=== PATIENT | male | born 1945 | race Caucasian/White ===

== ENCOUNTER → 2016-09-09 | Outpatient (CLI) | payer MEDICARE | LOC: M SMT 07:53 | PROVIDERS: ATTEND Urology | DX: R97.20 Elevated prostate specific antigen [PSA] (principal) ==

== ENCOUNTER → 2016-10-14 | Outpatient (REF) | payer MEDICARE | LOC: M LAB REF 12:47 | PROVIDERS: ATTEND Emergency Medicine | DX: N45.1 Epididymitis (principal) ==

== ENCOUNTER → 2016-12-03 | Outpatient (CLI) | payer MEDICARE ==
[2016-12-03 18:37] LABS: BASO % 0.3 % (0.0-1.0); EOS # 0.2 K/mm3 (0.0-0.50); EOS % 2.9 % (0.0-3.0); LARGE UNSTAINED CELL # 0.1 K/mm3 (0.0-0.4); LARGE UNSTAINED CELL % 2.3 % (0.0-4.0); LYMPH # 1.5 K/mm3 (1.5-4.5); MEAN CORPUSCULAR HEMOGLOBIN 30.8 pg (27.0-33.0); MEAN CORPUSCULAR HGB CONC 34.8 g/dl (32.0-36.5); MEAN CORPUSCULAR VOLUME 88.6 fl (80.0-96.0); MONO # 0.4 K/mm3 (0.0-0.8); MONO % 6.1 % (0.0-5.0); NEUTROPHILS # 3.5 K/mm3 (1.8-7.7); NEUTROPHILS % 61.4 % (36.0-66.0); PLATELET COUNT, AUTOMATED 253 k/mm3 (150-450); RED CELL DISTRIBUTION WIDTH 13.2 % (11.5-14.5); WHITE BLOOD COUNT 5.7 K/mm3 (4.0-10.0)
[2016-12-03 18:49] LABS: ALBUMIN 3.6 GM/DL (3.2-5.2); ALKALINE PHOSPHATASE 100 U/L (45-117); ALT/SGPT 39 U/L (12-78); ANION GAP 6 MEQ/L (8-16); AST/SGOT 28 U/L (15-37); BILIRUBIN,TOTAL 1.3 MG/DL (0.2-1.0); BLOOD UREA NITROGEN 23 MG/DL (7-18); CALCIUM LEVEL 8.8 MG/DL (8.8-10.2); CARBON DIOXIDE LEVEL 29 MEQ/L (21-32); CHLORIDE LEVEL 105 MEQ/L (98-107); CHOLESTEROL LEVEL 170 MG/DL (<200); CREATININE FOR GFR 1.07 MG/DL (0.70-1.30); GLOMERULAR FILTRATION RATE > 60.0 (>42); GLUCOSE, FASTING 127 MG/DL (83-110); POTASSIUM SERUM 4.3 MEQ/L (3.5-5.1); SODIUM LEVEL 140 MEQ/L (136-145); TOTAL PROTEIN 6.6 GM/DL (6.4-8.2); TRIGLYCERIDES LEVEL 82 MG/DL (<150)
== END ==
LOC: M SMT 10:37
PROVIDERS: ATTEND Emergency Medicine
DX: I10 Essential (primary) hypertension (principal); E78.2 Mixed hyperlipidemia; R73.01 Impaired fasting glucose

== ENCOUNTER → 2017-01-19 | Outpatient (CLI) | payer MEDICARE ==
[~2017-01-19] VITALS: Ht 177.8 cm; Wt 87.1 kg
[~2017-01-19] MED LIST: ASPI325T24 PO; ATOR80TA59 PO; HYDR12CA PO; KEFL500C17 PO; LOSA50TA20 PO; NS 1,000 ML IV ONE; OMEP20CA3 PO; PROPOFOL 200 MG/20 ML VIAL As Ordered ONE; VITA100067 PO; VITATAB11 PO
--- NOTE | 2017-01-19 11:36 | ROOR ---
Patient Name: Rafy Quintanilla Procedure Date: 01/19/2017 11:11 AM Date of : 1945 Age: 71 Room: [facility] Gender: Male Note Status: Finalized Procedure: Total Colonoscopy to cecum + Bx. Indications: Screening for colorectal malignant neoplasm Providers: Tanmay Matute MD Referring MD: ARVIN PONCE MD Requesting Provider: Medicines: Monitored Anesthesia Care Complications: No immediate complications. Procedure: Pre-Anesthesia Assessment: - The heart rate, respiratory rate, oxygen saturations, blood pressure, adequacy of pulmonary ventilation, and response to care were monitored throughout the procedure. The Colonoscope was introduced through the anus and advanced to the cecum, identified by appendiceal orifice and ileocecal valve. The colonoscopy was performed without difficulty. The patient tolerated the procedure well. The quality of the bowel preparation was excellent. Findings: The perianal and digital rectal examinations were normal. Non-bleeding internal hemorrhoids were found during retroflexion. The hemorrhoids were small and Grade I (internal hemorrhoids that do not prolapse). Multiple small and large-mouthed diverticula were found in the recto-sigmoid colon, sigmoid colon and descending colon. A localized area of mildly congested, erythematous and inflamed mucosa was found in the rectum. Biopsies were taken with a cold forceps for histology. The exam was otherwise without abnormality. Impression: - Non-bleeding internal hemorrhoids. - Diverticulosis in the recto-sigmoid colon, in the sigmoid colon and in the descending colon. - Congested, erythematous and inflamed mucosa in the rectum. Biopsied. - The examination was otherwise normal. - The exam was otherwise normal to the cecum. Recommendation: - Patient has a contact number available for emergencies. The signs and symptoms of potential delayed complications were discussed with the patient. Return to normal activities tomorrow. Written discharge instructions were provided to the patient. - High fiber diet. - Discharge patient to home. - Continue present medications. - Await pathology results. - Telephone GI clinic for pathology results in 1 week. - Repeat colonoscopy for symptoms only. - Return to referring physician. - Check Portal Online for Path Results.([email or web address] - The findings and recommendations were discussed with the patient's family. Tanmay Matute MD Tanmay Matute MD 01/19/2017 11:35:22 AM This report has been signed electronically. Number of Addenda: 0 Note Initiated On: 01/19/2017 11:11 AM Estimated Blood Loss: Estimated blood loss: none.
[2017-01-19 11:45] VITALS: BP 142/84
== END | disposition home or self-care (01) ==
LOC: M OPP 10:22
PROVIDERS: ATTEND Internal Medicine Gastroenterology
DX: Z12.11 Encounter for screening for malignant neoplasm of colon (principal); K64.0 First degree hemorrhoids; K57.30 Diverticulosis of large intestine without perforation or abscess without bleeding; K62.89 Other specified diseases of anus and rectum; I10 Essential (primary) hypertension; E78.00 Pure hypercholesterolemia, unspecified; Z87.891 Personal history of nicotine dependence; Z79.899 Other long term (current) drug therapy; Z79.82 Long term (current) use of aspirin; Z88.2 Allergy status to sulfonamides

== ENCOUNTER 2017-01-20 08:13 | Emergency (ER) | payer OTHER, MEDICARE ==
[~2017-01-20] VITALS: Ht 177.8 cm; Wt 85.5 kg
[~2017-01-20 08:13] MED LIST changes: -KEFL500C17 PO; -NS 1,000 ML IV ONE; -PROPOFOL 200 MG/20 ML VIAL As Ordered ONE
[2017-01-20 08:20] VITALS: BP 166/83
[2017-01-20] MEDS ORDERED: KEFL500C17 PO (09:14)
[2017-01-20] MEDS ORDERED: ADACEL/BOOSTRIX VACCINE (DIPHTH/PERTUSS/ACELL/TETANUS)0.5ML SYR (90715) IM ONE (09:15)
== END 2017-01-20 09:20 | disposition home or self-care (01) ==
LOC: M ED 08:13
DX: S61.216A Laceration without foreign body of right little finger without damage to nail, initial encounter (principal); W26.9XXA Contact with unspecified sharp object(s), initial encounter; Y92.89 Other specified places as the place of occurrence of the external cause; Y93.89 Activity, other specified; Y99.0 Civilian activity done for income or pay

== ENCOUNTER → 2017-04-09 | Outpatient (CLI) | payer MEDICARE ==
[~2017-04-09] MED LIST changes: +KEFL500C17 PO
== END ==
LOC: M SMT 11:59
PROVIDERS: ATTEND Urology
DX: R97.20 Elevated prostate specific antigen [PSA] (principal)

== ENCOUNTER → 2017-05-01 | Outpatient (CLI) | payer MEDICARE ==
[2017-05-01 18:18] LABS: BLOOD UREA NITROGEN 21 MG/DL (7-18); CREATININE FOR GFR 0.92 MG/DL (0.70-1.30); GLOMERULAR FILTRATION RATE > 60.0 (>42)
== END ==
LOC: M SMT 15:02
PROVIDERS: ATTEND Urology
DX: R97.20 Elevated prostate specific antigen [PSA] (principal)

== ENCOUNTER → 2017-07-09 | Outpatient (CLI) | payer MEDICARE ==
[2017-07-09 18:18] LABS: ESTIMATED AVERAGE GLUCOSE 137 MG/DL (60-110)
[2017-07-09 18:21] LABS: ALBUMIN 3.8 GM/DL (3.2-5.2); ALBUMIN/GLOBULIN RATIO 1.19 (1.00-1.93); ALKALINE PHOSPHATASE 95 U/L (45-117); ALT/SGPT 36 U/L (12-78); ANION GAP 7 MEQ/L (8-16); AST/SGOT 30 U/L (7-37); BILIRUBIN,TOTAL 1.6 MG/DL (0.2-1.0); BLOOD UREA NITROGEN 19 MG/DL (7-18); CALCIUM LEVEL 8.3 MG/DL (8.8-10.2); CARBON DIOXIDE LEVEL 29 MEQ/L (21-32); CHLORIDE LEVEL 105 MEQ/L (98-107); CHOLESTEROL LEVEL 153 MG/DL (<200); GLOMERULAR FILTRATION RATE > 60.0 (>42); GLUCOSE, FASTING 134 MG/DL (83-110); POTASSIUM SERUM 4.3 MEQ/L (3.5-5.1); SODIUM LEVEL 141 MEQ/L (136-145); TRIGLYCERIDES LEVEL 74 MG/DL (<150)
== END ==
LOC: M SMT 11:15
DX: E78.2 Mixed hyperlipidemia (principal); I10 Essential (primary) hypertension; R73.01 Impaired fasting glucose
CPT/HCPCS: 80053

== ENCOUNTER → 2017-12-08 | Outpatient (CLI) | payer MEDICARE ==
[2017-12-10 00:06] LABS: PSA % FREE 17.4 % (.); PSA FREE 0.75 ng/mL; PSA TOTAL 4.3 ng/mL (0.0-4.0)
== END ==
LOC: M SMT 08:03
DX: R97.20 Elevated prostate specific antigen [PSA] (principal)
CPT/HCPCS: 84154

== ENCOUNTER → 2018-02-02 | Outpatient (CLI) | payer MEDICARE ==
[2018-02-02 14:00] LABS: ALBUMIN 3.6 GM/DL (3.2-5.2); ALBUMIN/GLOBULIN RATIO 1.09 (1.00-1.93); ALKALINE PHOSPHATASE 96 U/L (45-117); ALT/SGPT 49 U/L (12-78); ANION GAP 6 MEQ/L (8-16); AST/SGOT 31 U/L (7-37); BILIRUBIN,TOTAL 0.9 MG/DL (0.2-1.0); BLOOD UREA NITROGEN 22 MG/DL (7-18); CALCIUM LEVEL 8.6 MG/DL (8.8-10.2); CARBON DIOXIDE LEVEL 28 MEQ/L (21-32); CHLORIDE LEVEL 107 MEQ/L (98-107); CHOLESTEROL LEVEL 173 MG/DL (<200); CHOLESTEROL RISK RATIO 3.326 (<5); CREATININE FOR GFR 1.08 MG/DL (0.70-1.30); GLOMERULAR FILTRATION RATE > 60.0 (>42); GLUCOSE, FASTING 141 MG/DL (70-100); HDL CHOLESTEROL 52 MG/DL (>40); LDL CHOLESTEROL 103.6 MG/DL (<100); NON-HDL-C 121 MG/DL; POTASSIUM SERUM 4.5 MEQ/L (3.5-5.1); SODIUM LEVEL 141 MEQ/L (136-145); TOTAL PROTEIN 6.9 GM/DL (6.4-8.2); TRIGLYCERIDES LEVEL 87 MG/DL (<150)
[2018-02-02 14:32] LABS: ESTIMATED AVERAGE GLUCOSE 148 MG/DL (60-110); HEMOGLOBIN A1c 6.8 %
== END ==
LOC: M SMT 08:26
DX: I10 Essential (primary) hypertension (principal); E78.2 Mixed hyperlipidemia; R73.01 Impaired fasting glucose
CPT/HCPCS: 80053

== ENCOUNTER → 2019-01-31 | Outpatient (CLI) | payer MEDICARE ==
[~2019-01-31] MED LIST changes: +ASPI-255 PO; -ASPI325T24 PO; -LOSA50TA20 PO; +LOSA50TA88 PO; -OMEP20CA3 PO; +OMEP20CA4 PO
[2019-01-31 13:21] LABS: HEMATOCRIT 45.4 % (42.0-52.0); HEMOGLOBIN 15.6 g/dl (13.5-17.5); MEAN CORPUSCULAR HEMOGLOBIN 31.7 pg (27.0-33.0); MEAN CORPUSCULAR HGB CONC 34.4 g/dl (32.0-36.5); MEAN CORPUSCULAR VOLUME 92.3 fl (80.0-96.0); PLATELET COUNT, AUTOMATED 200 10^3/uL (150-450); RED BLOOD COUNT 4.92 10^6/uL (4.30-6.10); WHITE BLOOD COUNT 7.5 10^3/uL (4.0-10.0)
[2019-01-31 13:37] LABS: ALBUMIN 3.6 GM/DL (3.2-5.2); ALT/SGPT 36 U/L (12-78); BILIRUBIN,TOTAL 0.8 MG/DL (0.2-1.0); BLOOD UREA NITROGEN 24 MG/DL (7-18); CALCIUM LEVEL 9.2 MG/DL (8.8-10.2); CARBON DIOXIDE LEVEL 29 MEQ/L (21-32); CHLORIDE LEVEL 107 MEQ/L (98-107); CHOLESTEROL LEVEL 160 MG/DL (<200); CHOLESTEROL RISK RATIO 3.636 (<5); GLOMERULAR FILTRATION RATE > 60.0 (>42); GLUCOSE, FASTING 132 MG/DL (70-100); HDL CHOLESTEROL 44 MG/DL (>40); LDL CHOLESTEROL 103 MG/DL (<100); NON-HDL-C 116 MG/DL; POTASSIUM SERUM 4.7 MEQ/L (3.5-5.1); SODIUM LEVEL 141 MEQ/L (136-145); TOTAL PROTEIN 6.9 GM/DL (6.4-8.2); TRIGLYCERIDES LEVEL 67 MG/DL (<150)
[2019-01-31 14:09] LABS: HEMOGLOBIN A1c 6.8 %
[2019-02-01 14:41] LABS: PSA % FREE 19.2 % (.); PSA FREE 0.96 ng/mL
== END ==
LOC: M SMT 10:15
PROVIDERS: ATTEND Urology
DX: E78.2 Mixed hyperlipidemia (principal); R53.83 Other fatigue; R97.20 Elevated prostate specific antigen [PSA]

== ENCOUNTER → 2019-08-02 | Outpatient (CLI) | payer MEDICARE ==
[~2019-08-02] MED LIST changes: +OMEP1CAP73 PO; -OMEP20CA4 PO
[2019-08-02 13:56] LABS: ALBUMIN 3.9 GM/DL (3.2-5.2); ALT/SGPT 38 U/L (12-78); BILIRUBIN,TOTAL 2.2 MG/DL (0.2-1.0); BLOOD UREA NITROGEN 25 MG/DL (7-18); CALCIUM LEVEL 9.4 MG/DL (8.8-10.2); CARBON DIOXIDE LEVEL 29 MEQ/L (21-32); CHLORIDE LEVEL 105 MEQ/L (98-107); GLOMERULAR FILTRATION RATE > 60.0 (>42); GLUCOSE, FASTING 139 MG/DL (70-100); POTASSIUM SERUM 4.4 MEQ/L (3.5-5.1); SODIUM LEVEL 140 MEQ/L (136-145)
[2019-08-02 14:52] LABS: HEMOGLOBIN A1c 7.1 %
== END ==
LOC: M PLALAB 10:20
PROVIDERS: ATTEND Physician Assistant
DX: R73.01 Impaired fasting glucose (principal)

== ENCOUNTER → 2019-10-05 | Outpatient (CLI) | payer MEDICARE ==
[~2019-10-05] MED LIST changes: +ISOVUE-370 76% 100ML VIAL (Q9967) As Ordered ONE
--- NOTE | 2019-10-05 11:31 | REP ---
Clinical: Aortic aneurysm. Technique: Axial contrast enhanced angiographic images from the thoracic inlet to the upper abdomen with multiplanar re-formations and and volume rendered 3-D aortic angiogram using 100 ml Isovue 370 intravenous contrast material. Findings: Ascending thoracic aorta measures 3.3 cm maximal diameter. There is a small focus of partially calcified atheromatous plaquing along the mid to distal aortic arch and the descending thoracic aorta measures up to approximately 2.6 cm maximal diameter before extending below the diaphragmatic hiatus. Major branch vessels of the thoracic aorta are normal in appearance. The pulmonary arteries appear normal. The heart demonstrates atherosclerotic changes to the coronary arteries without cardiomegaly or pericardial effusion. There is no evidence for adenopathy. Further evaluation of the mediastinum demonstrates large paraesophageal gastric hiatal hernia. The bilateral lung murphy are relatively clear. Calcified granuloma noted. No significant nodule, consolidation or effusion. Surrounding musculoskeletal structures are intact. Impression: 1. No evidence for thoracic aortic aneurysm or dissection. Atherosclerotic changes noted primarily through the aortic arch and coronary arteries. 2. Large paraesophageal gastric hiatal hernia. Electronically Signed by Nate Lee MD 10/05/2019 11:22 A
--- NOTE | 2019-10-05 11:37 | REP ---
Clinical: Aortic aneurysm. Technique: Axial contrast enhanced angiographic images from the the lung bases to the pubic symphysis with multiplanar re-formations and and volume rendered 3-D aortic angiogram using 100 ml Isovue 370 intravenous contrast material. Comparison: 06/19/2015. Findings: The abdominal aorta and branch vessels demonstrate mild/early moderate atheromatous plaquing without aortic aneurysm or dissection and without obvious branch vessel stenosis or occlusion. There is satisfactory enhancement of the celiac axis, superior mesenteric artery, solitary right and dual left renal arteries and inferior mesenteric artery. Bifurcation and arterial structures through the pelvis to the level of the femoral arteries demonstrate satisfactory symmetric enhancement. Large paraesophageal gastric hiatal hernia noted. Liver, spleen, pancreas, gallbladder, bilateral adrenal glands and kidneys are relatively normal. 3 mm nonobstructing left renal calculus identified without perinephric stranding or hydronephrosis. The enteric system is without obstruction or acute inflammatory process. Evaluation of the pelvis demonstrates prostatomegaly and posterior bladder diverticulum measuring up to 1.7 cm on the right and 10 mm on the left. No pelvic fluid or ascites. No free air. No adenopathy. Impression: 1. Mild/moderate atheromatous plaquing of the abdominal aorta and branch vessels. No evidence for abdominal aortic aneurysm or dissection. No significant elements of occlusion or stenosis appreciated. 2. Large paraesophageal gastric hiatal hernia. 3. 3 mm nonobstructing left renal calculus. 4. Prostatomegaly and small bladder diverticulum which may be secondary to chronic outlet obstruction. Electronically Signed by Nate Lee MD 10/05/2019 11:28 A
== END ==
LOC: M RAD 10:13
PROVIDERS: ATTEND Surgery Vascular Surgery
DX: K44.9 Diaphragmatic hernia without obstruction or gangrene (principal); I70.0 Atherosclerosis of aorta; N20.0 Calculus of kidney
CPT/HCPCS: 71275; 74174; Q9967

== ENCOUNTER → 2019-12-08 | Outpatient (CLI) | payer MEDICARE ==
[~2019-12-08] MED LIST changes: -ISOVUE-370 76% 100ML VIAL (Q9967) As Ordered ONE
[2019-12-08 11:43] LABS: CHOLESTEROL RISK RATIO 4.093 (<5)
== END ==
LOC: M PLALAB 09:30
PROVIDERS: ATTEND Internal Medicine Cardiovascular Disease
DX: E78.00 Pure hypercholesterolemia, unspecified (principal)

== ENCOUNTER → 2020-02-07 | Outpatient (REF) | payer MEDICARE ==
[2020-03-12 13:45] LABS: ALBUMIN 3.8 GM/DL (3.2-5.2); ALT/SGPT 36 U/L (12-78); BILIRUBIN,TOTAL 1.1 MG/DL (0.2-1.0); BLOOD UREA NITROGEN 26 MG/DL (7-18); CALCIUM LEVEL 8.8 MG/DL (8.8-10.2); CARBON DIOXIDE LEVEL 31 MEQ/L (21-32); CHLORIDE LEVEL 106 MEQ/L (98-107); CHOLESTEROL LEVEL 68 MG/DL (<200); CHOLESTEROL RISK RATIO 1.478 (<5); CREATININE FOR GFR 1.08 MG/DL (0.70-1.30); GLOMERULAR FILTRATION RATE > 60.0 (>42); GLUCOSE, FASTING 148 MG/DL (70-100); HDL CHOLESTEROL 46 MG/DL (>40); HEMOGLOBIN A1c 6.7 %; LDL CHOLESTEROL 6 MG/DL (<100); NON-HDL-C 22 MG/DL; POTASSIUM SERUM 4.9 MEQ/L (3.5-5.1); SODIUM LEVEL 142 MEQ/L (136-145); TOTAL PROTEIN 6.9 GM/DL (6.4-8.2); TRIGLYCERIDES LEVEL 82 MG/DL (<150)
[2020-03-12 13:46] LABS: MALB URINE SIEMENS 9.6 MG/L
== END ==
LOC: M LABSMT 14:03
PROVIDERS: ATTEND Physician Assistant
DX: E78.2 Mixed hyperlipidemia (principal); I10 Essential (primary) hypertension; E11.9 Type 2 diabetes mellitus without complications; R97.20 Elevated prostate specific antigen [PSA]

== ENCOUNTER → 2020-02-07 | Outpatient (REF) | payer MEDICARE ==
[2020-03-15 06:37] LABS: PSA TOTAL See Separate Report
== END ==
LOC: M LABSMT 17:19
PROVIDERS: ATTEND Chiropractor Rehabilitation
DX: R97.20 Elevated prostate specific antigen [PSA] (principal)

== ENCOUNTER → 2020-06-27 | Outpatient (CLI) | payer MEDICARE ==
[2020-06-27 10:40] LABS: CHOLESTEROL RISK RATIO 1.34 (<5)
== END ==
LOC: M PLALAB 09:06
PROVIDERS: ATTEND Internal Medicine Cardiovascular Disease
DX: I25.118 Atherosclerotic heart disease of native coronary artery with other forms of angina pectoris (principal); E78.00 Pure hypercholesterolemia, unspecified

== ENCOUNTER → 2020-09-11 | Outpatient (CLI) | payer MEDICARE ==
[2020-09-11 11:05] LABS: CHOLESTEROL RISK RATIO 1.452 (<5)
== END ==
LOC: M PLALAB 08:56
PROVIDERS: ATTEND Physician Assistant Medical
DX: E78.00 Pure hypercholesterolemia, unspecified (principal)

== ENCOUNTER → 2020-11-20 | Outpatient (CLI) | payer MEDICARE ==
[2020-11-20 10:52] LABS: CHOLESTEROL RISK RATIO 1.509 (<5)
== END ==
LOC: M PLALAB 08:27
PROVIDERS: ATTEND Internal Medicine Cardiovascular Disease
DX: E78.00 Pure hypercholesterolemia, unspecified (principal); I25.10 Atherosclerotic heart disease of native coronary artery without angina pectoris

== ENCOUNTER → 2021-01-21 | Outpatient (CLI) | payer MEDICARE ==
[2021-01-22 23:07] LABS: PSA % FREE 16.4 % (.); PSA FREE 0.9 ng/mL; PSA TOTAL 5.5 ng/mL (0.0-4.0)
== END ==
LOC: M PLALAB 08:24
PROVIDERS: ATTEND Nurse Practitioner Family
DX: R97.20 Elevated prostate specific antigen [PSA] (principal)

== ENCOUNTER → 2021-01-21 | Outpatient (CLI) | payer MEDICARE ==
[2021-01-21 11:39] LABS: ALBUMIN 3.7 GM/DL (3.2-5.2); ALT/SGPT 41 U/L (12-78); BLOOD UREA NITROGEN 24 MG/DL (7-18); CALCIUM LEVEL 9.4 MG/DL (8.8-10.2); CARBON DIOXIDE LEVEL 29 MEQ/L (21-32); CHLORIDE LEVEL 105 MEQ/L (98-107); CREATININE FOR GFR 0.94 MG/DL (0.70-1.30); GLOMERULAR FILTRATION RATE > 60.0 (>42); GLUCOSE, FASTING 206 MG/DL (70-100); POTASSIUM SERUM 4.6 MEQ/L (3.5-5.1); SODIUM LEVEL 139 MEQ/L (136-145)
[2021-01-21 11:48] LABS: MALB URINE SIEMENS 20.7 MG/L
== END ==
LOC: M PLALAB 08:26
PROVIDERS: ATTEND Nurse Practitioner Family
DX: E11.9 Type 2 diabetes mellitus without complications (principal); I10 Essential (primary) hypertension

== ENCOUNTER → 2021-01-21 | Outpatient (CLI) | payer MEDICARE ==
[2021-01-21 11:43] LABS: CHOLESTEROL RISK RATIO 2.826 (<5)
== END ==
LOC: M PLALAB 08:28
PROVIDERS: ATTEND Internal Medicine Cardiovascular Disease
DX: I25.118 Atherosclerotic heart disease of native coronary artery with other forms of angina pectoris (principal); E78.00 Pure hypercholesterolemia, unspecified

== ENCOUNTER 2021-01-25 12:32 | Emergency (ER) | payer MEDICARE ==
[~2021-01-25] VITALS: Ht 177.8 cm; Wt 85.5 kg
[2021-01-25] MEDS ORDERED: NITR0.4S14 SL (16:28)
[2021-01-25] MEDS ORDERED: OMEP-221 PO (16:28)
[2021-01-25] MEDS ORDERED: VITMTA PO (16:28)
[2021-01-25] MEDS ORDERED: REPA140I2 SUBQ (16:28)
[2021-01-25] MEDS ORDERED: ACETAMINOPHEN 500 MG TAB PO ONE (17:10)
[2021-01-25] MEDS ORDERED: ONDANSETRON 4MG/2ML VIAL IV ONE (17:10)
[2021-01-25] MEDS ORDERED: LIDOCAINE 5% (LIDODERM) PATCH TD ONE (17:10)
[2021-01-25] MEDS ORDERED: MORPHINE 4 MG/ML 1ML VIAL/SYRINGE (J2270) IV ONE (17:10)
--- NOTE | 2021-01-25 17:52 | REPVR ---
PROCEDURE INFORMATION: Exam: CT Lumbar Spine Without Contrast Exam date and time: 01/25/2021 5:15 PM Age: 75 years old Clinical indication: Other: Low back pain radiating to lle TECHNIQUE: Imaging protocol: Computed tomography images of the lumbar spine without contrast. Radiation optimization: All CT scans at this facility use at least one of these dose optimization techniques: automated exposure control; mA and/or kV adjustment per patient size (includes targeted exams where dose is matched to clinical indication); or iterative reconstruction. COMPARISON: CT ANGIO ABD/PEL 10/05/2019 10:50 AM FINDINGS: Vertebrae: Slight degenerative retrolisthesis of L4 on L5 and L5 on S1. Slight lower lumbar levoconvex scoliosis. No acute fracture seen. Disc height loss and spondylosis is [id number] at L5-S1. Mild disc height loss elsewhere. Prominent multilevel prevertebral spondylosis. L1-L2: No significant disc protrusion. No severe spinal canal stenosis. No significant neural foraminal narrowing. L2-L3: No significant disc protrusion. No severe spinal canal stenosis. No significant neural foraminal narrowing. L3-L4: Mild disc osteophyte complex and lrud-ts-hqlxdshe facet arthropathy. The central spinal canal remains patent. Mild left neural foraminal stenosis. No significant right neural foraminal narrowing. L4-L5: Mild diffuse disc bulge and fygo-rk-sooucolb facet arthropathy. The central spinal canal remains patent. No significant foraminal stenoses. L5-S1: Mild disc osteophyte complex and zlma-nm-kbfgvmui facet arthropathy. The central spinal canal remains patent. Disc osteophyte complex may contact the S1 nerve roots. Eiye-qb-tkopezke right and mild left neural foraminal stenoses, the exiting L5 nerve roots may contact far lateral disc osteophyte. Mediastinum: There is a large hiatal hernia. Kidneys and ureters: The left kidney demonstrates a nonobstructing calculus. Stomach and bowel: There is colonic diverticulosis. Vasculature: The aorta demonstrates atherosclerosis. Soft tissues: Unremarkable. IMPRESSION: 1. No acute findings identified. 2. Degenerative changes, as above. No high-grade central spinal canal stenosis. Neural foraminal stenoses at L5-S1. Disc osteophyte complex at L5-S1 may contact the S1 nerve roots. Electronically signed by: Nona Salinas On 01/25/2021 17:51:54 PM
[2021-01-25 18:21] VITALS: BP 131/65
[2021-01-25] MEDS ORDERED: ACET1TAB16 PO (19:24)
[2021-01-25] MEDS ORDERED: LIDO5DIS41 TOP (19:24)
[2021-01-25] MEDS ORDERED: **NOTE PATIENT COMMENT** MISC XX SCH (21:00)
== END 2021-01-25 19:44 | disposition home or self-care (01) ==
LOC: M ED 12:32
DX: S39.012A Strain of muscle, fascia and tendon of lower back, initial encounter (principal); X58.XXXA Exposure to other specified factors, initial encounter; Y92.89 Other specified places as the place of occurrence of the external cause; M51.27 Other intervertebral disc displacement, lumbosacral region; M51.37 Other intervertebral disc degeneration, lumbosacral region; M54.42 Lumbago with sciatica, left side; I10 Essential (primary) hypertension; E78.5 Hyperlipidemia, unspecified; K21.9 Gastro-esophageal reflux disease without esophagitis; I25.10 Atherosclerotic heart disease of native coronary artery without angina pectoris; N40.0 Benign prostatic hyperplasia without lower urinary tract symptoms; Z79.899 Other long term (current) drug therapy; Z79.82 Long term (current) use of aspirin; Z88.1 Allergy status to other antibiotic agents; Z88.2 Allergy status to sulfonamides; Z87.891 Personal history of nicotine dependence
CPT/HCPCS: 72131; 96374; 96375; 99284; J2270; J2405

== ENCOUNTER → 2021-05-02 | Outpatient (CLI) | payer MEDICARE ==
[~2021-05-02] MED LIST changes: +ACET1TAB16 PO; +LIDO5DIS41 TOP; +NITR0.4S14 SL; +OMEP-221 PO; +REPA140I2 SUBQ; +VITMTA PO
[2021-05-02 10:59] LABS: HEMOGLOBIN A1c 6.5 %
[2021-05-02 11:06] LABS: ALBUMIN 3.6 GM/DL (3.2-5.2); ALT/SGPT 37 U/L (12-78); BLOOD UREA NITROGEN 27 MG/DL (7-18); CALCIUM LEVEL 8.8 MG/DL (8.8-10.2); CARBON DIOXIDE LEVEL 32 MEQ/L (21-32); CHLORIDE LEVEL 107 MEQ/L (98-107); GLOMERULAR FILTRATION RATE > 60.0 (>42); GLUCOSE, FASTING 141 MG/DL (70-100); POTASSIUM SERUM 4.4 MEQ/L (3.5-5.1); SODIUM LEVEL 141 MEQ/L (136-145); TOTAL PROTEIN 6.7 GM/DL (6.4-8.2)
== END ==
LOC: M PLALAB 08:15
PROVIDERS: ATTEND Nurse Practitioner Family
DX: E11.9 Type 2 diabetes mellitus without complications (principal)

== ENCOUNTER → 2021-08-02 | Outpatient (CLI) | payer MEDICARE ==
[~2021-08-02] MED LIST changes: +LOSA50TA28 PO; -LOSA50TA88 PO; -OMEP-221 PO; +OMEP40CA5 PO
[2021-08-02 11:09] LABS: CHOLESTEROL RISK RATIO 4.212 (<5)
== END ==
LOC: M PLALAB 09:24
PROVIDERS: ATTEND Internal Medicine Cardiovascular Disease
DX: E78.00 Pure hypercholesterolemia, unspecified (principal); I25.10 Atherosclerotic heart disease of native coronary artery without angina pectoris

== ENCOUNTER → 2021-10-28 | Outpatient (CLI) | payer MEDICARE ==
[~2021-10-28] MED LIST changes: -ACET1TAB16 PO; +ACET300T48 PO
[2021-10-28 14:20] LABS: MALB URINE SIEMENS 11.5 MG/L
[2021-10-28 14:24] LABS: ALBUMIN 3.9 GM/DL (3.2-5.2); ALT/SGPT 47 U/L (12-78); BILIRUBIN,TOTAL 1.2 MG/DL (0.2-1.0); BLOOD UREA NITROGEN 24 MG/DL (7-18); CALCIUM LEVEL 9.2 MG/DL (8.8-10.2); CARBON DIOXIDE LEVEL 29 MEQ/L (21-32); CHLORIDE LEVEL 104 MEQ/L (98-107); CHOLESTEROL LEVEL 165 MG/DL (<200); CREATININE FOR GFR 0.96 MG/DL (0.70-1.30); GLOMERULAR FILTRATION RATE > 60.0 (>42); GLUCOSE, FASTING 132 MG/DL (70-100); HDL CHOLESTEROL 50 MG/DL (>40); LDL CHOLESTEROL 96 MG/DL (<100); NON-HDL-C 115 MG/DL; POTASSIUM SERUM 4.3 MEQ/L (3.5-5.1); SODIUM LEVEL 138 MEQ/L (136-145); TRIGLYCERIDES LEVEL 93 MG/DL (<150)
[2021-10-28 14:55] LABS: HEMOGLOBIN A1c 6.4 %
== END ==
LOC: M PLALAB 11:22
PROVIDERS: ATTEND Nurse Practitioner Family
DX: E11.9 Type 2 diabetes mellitus without complications (principal); I10 Essential (primary) hypertension; E78.2 Mixed hyperlipidemia

== ENCOUNTER → 2022-03-03 | Outpatient (CLI) | payer MEDICARE ==
[2022-03-04 23:07] LABS: PSA % FREE 20.7 % (.); PSA FREE 0.95 ng/mL; PSA TOTAL 4.6 ng/mL (0.0-4.0)
== END ==
LOC: M PLALAB 07:55
PROVIDERS: ATTEND Urology
DX: R97.20 Elevated prostate specific antigen [PSA] (principal)

== ENCOUNTER → 2022-04-29 | Outpatient (CLI) | payer MEDICARE | LOC: M PLALAB 08:03 | PROVIDERS: ATTEND Nurse Practitioner Family | DX: E11.9 Type 2 diabetes mellitus without complications (principal) ==

== ENCOUNTER → 2022-05-29 | Outpatient (CLI) | payer MEDICARE ==
[2022-05-29 16:04] LABS: CHOLESTEROL RISK RATIO 2.36 (<5); HDL CHOLESTEROL 49.4 MG/DL (>40)
== END ==
LOC: M PLALAB 11:44
PROVIDERS: ATTEND Internal Medicine Cardiovascular Disease
DX: E78.00 Pure hypercholesterolemia, unspecified (principal)

== ENCOUNTER → 2022-08-14 | Outpatient (CLI) | payer MEDICARE | LOC: M PLALAB 10:19 | PROVIDERS: ATTEND Urology | DX: R97.20 Elevated prostate specific antigen [PSA] (principal) ==

== ENCOUNTER → 2022-10-24 | Outpatient (CLI) | payer MEDICARE ==
[2022-10-24 12:30] LABS: ALBUMIN 3.7 G/DL (3.2-5.2); ALKALINE PHOSPHATASE 68 U/L (46-116); ALT/SGPT 25 U/L (7.0-40); AST/SGOT 23 U/L (<34); BLOOD UREA NITROGEN 29 MG/DL (9-23); CALCIUM LEVEL 9.2 MG/DL (8.3-10.6); CARBON DIOXIDE LEVEL 29 MMOL/L (20-31); CHLORIDE LEVEL 103 MMOL/L (98-107); CHOLESTEROL LEVEL 137 MG/DL (<200); CHOLESTEROL RISK RATIO 2.66 (<5); GLOMERULAR FILTRATION RATE > 60.0 (>42); GLUCOSE, FASTING 115 MG/DL (74-106); HDL CHOLESTEROL 51.4 MG/DL (>40); LDL CHOLESTEROL 71.6 MG/DL (<100); NON-HDL-C 85.6 MG/DL; POTASSIUM SERUM 4.4 MMOL/L (3.5-5.1); SODIUM LEVEL 139 MMOL/L (136-145); TOTAL PROTEIN 6.6 G/DL (5.7-8.2); TRIGLYCERIDES LEVEL 70 MG/DL (<150)
[2022-10-24 15:45] LABS: HEMOGLOBIN A1c 6.2 % (4.0-6.0)
== END ==
LOC: M PLALAB 07:04
PROVIDERS: ATTEND Registered Nurse
DX: E11.9 Type 2 diabetes mellitus without complications (principal)

== ENCOUNTER → 2023-03-20 | Outpatient (CLI) | payer MEDICARE | LOC: M PLALAB 08:25 | PROVIDERS: ATTEND Urology | DX: R97.20 Elevated prostate specific antigen [PSA] (principal) ==

== ENCOUNTER → 2023-03-27 | Outpatient (REF) | payer MEDICARE | LOC: M LAB REF 13:14 | PROVIDERS: ATTEND Registered Nurse | DX: R35.0 Frequency of micturition (principal) ==

== ENCOUNTER → 2023-11-04 | Outpatient (CLI) | payer MEDICARE, MEDICAID ==
[2023-11-04 11:24] LABS: ALBUMIN 3.7 G/DL (3.2-5.2); ALKALINE PHOSPHATASE 80 U/L (46-116); ALT/SGPT 23 U/L (7.0-40); AST/SGOT 21 U/L (<34); BILIRUBIN,TOTAL 0.9 MG/DL (0.3-1.2); BLOOD UREA NITROGEN 30 MG/DL (9-23); CALCIUM LEVEL 9.5 MG/DL (8.3-10.6); CARBON DIOXIDE LEVEL 30 MMOL/L (20-31); CHLORIDE LEVEL 102 MMOL/L (98-107); CHOLESTEROL LEVEL 119 MG/DL (<200); CHOLESTEROL RISK RATIO 2.91 (<5); CREATININE FOR GFR 0.93 MG/DL (0.70-1.30); GLOMERULAR FILTRATION RATE > 60.0 (>42); GLUCOSE, FASTING 144 MG/DL (74-106); HDL CHOLESTEROL 40.8 MG/DL (>40); LDL CHOLESTEROL 48.6 MG/DL (<100); NON-HDL-C 78.2 MG/DL; POTASSIUM SERUM 4.6 MMOL/L (3.5-5.1); SODIUM LEVEL 138 MMOL/L (136-145); TOTAL PROTEIN 6.6 G/DL (5.7-8.2); TRIGLYCERIDES LEVEL 148 MG/DL (<150)
[2023-11-04 11:32] LABS: HEMOGLOBIN A1c 6.8 % (4.0-6.0)
[2023-11-04 12:04] LABS: CREATININE, URINE 91.1 MG/DL; MAU/CREAT RATIO 9.8 MCG/MG (0.0-30.0)
== END ==
LOC: M PLALAB 07:01
PROVIDERS: ATTEND Nurse Practitioner Family
DX: I10 Essential (primary) hypertension (principal); E11.9 Type 2 diabetes mellitus without complications

== ENCOUNTER → 2024-02-22 | Outpatient (CLI) | payer MEDICARE, MEDICAID ==
[2024-02-23 11:52] LABS: PSA FREE 1.3 ng/mL; PSA TOTAL 6.5 ng/mL (< OR = 4.0)
== END ==
LOC: M PLALAB 07:22
PROVIDERS: ATTEND Urology
DX: R97.20 Elevated prostate specific antigen [PSA] (principal)

== ENCOUNTER → 2024-04-06 | Outpatient (CLI) | payer MEDICARE ==
[2024-04-06 10:35] LABS: ALT/SGPT 34 U/L (7.0-40); AST/SGOT 19 U/L (<34); BLOOD UREA NITROGEN 25 MG/DL (9-23); CALCIUM LEVEL 9.3 MG/DL (8.3-10.6); CARBON DIOXIDE LEVEL 29 MMOL/L (20-31); CHLORIDE LEVEL 105 MMOL/L (98-107); CHOLESTEROL LEVEL 127 MG/DL (<200); CHOLESTEROL RISK RATIO 2.58 (<5); CREATININE FOR GFR 0.89 MG/DL (0.70-1.30); GLOMERULAR FILTRATION RATE > 60.0 (>42); GLUCOSE, FASTING 163 MG/DL (74-106); HDL CHOLESTEROL 49.1 MG/DL (>40); LDL CHOLESTEROL 35.1 MG/DL (<100); NON-HDL-C 77.9 MG/DL; POTASSIUM SERUM 4.6 MMOL/L (3.5-5.1); SODIUM LEVEL 138 MMOL/L (136-145); TRIGLYCERIDES LEVEL 214 MG/DL (<150)
[2024-04-06 10:49] LABS: CPK CREATINE PHOSPHOKINASE 103 U/L (46-171)
== END ==
LOC: M PLALAB 07:07
PROVIDERS: ATTEND Physician Assistant Medical
DX: E78.00 Pure hypercholesterolemia, unspecified (principal); M79.669 Pain in unspecified lower leg

== ENCOUNTER → 2024-04-06 | Outpatient (CLI) | payer MEDICARE ==
[2024-04-06 10:50] LABS: HEMOGLOBIN A1c 6.7 % (4.0-6.0)
== END ==
LOC: M PLALAB 07:05
PROVIDERS: ATTEND Nurse Practitioner Family
DX: E11.9 Type 2 diabetes mellitus without complications (principal)

== ENCOUNTER → 2024-07-22 | Outpatient (CLI) | payer MEDICARE ==
[2024-07-22 11:43] LABS: CHOLESTEROL RISK RATIO 2.91 (<5); HDL CHOLESTEROL 49.8 MG/DL (>40); LDL CHOLESTEROL 53.4 MG/DL (<100); NON-HDL-C 95.2 MG/DL
== END ==
LOC: M PLALAB 07:26
PROVIDERS: ATTEND Physician Assistant Medical
DX: E78.00 Pure hypercholesterolemia, unspecified (principal)

== ENCOUNTER → 2024-10-25 | Outpatient (CLI) | payer MEDICARE, MEDICAID | LOC: M PLAIMG 09:13 | PROVIDERS: ATTEND Nurse Practitioner Family | DX: R05.9 Cough, unspecified (principal) ==

== ENCOUNTER → 2024-11-04 | Outpatient (CLI) | payer MEDICARE, MEDICAID ==
[2024-11-04 11:11] LABS: ALBUMIN 3.5 G/DL (3.2-5.2); BILIRUBIN,TOTAL 1.1 MG/DL (0.3-1.2); CALCIUM LEVEL 8.9 MG/DL (8.3-10.6); CREATININE FOR GFR 0.93 MG/DL (0.70-1.30); GLOMERULAR FILTRATION RATE 84.1 (>42); POTASSIUM SERUM 4.7 MMOL/L (3.5-5.1); TOTAL PROTEIN 6.4 G/DL (5.7-8.2)
[2024-11-04 11:13] LABS: HEMOGLOBIN A1c 8.1 % (4.0-6.0)
== END ==
LOC: M PLALAB 07:19
PROVIDERS: ATTEND Nurse Practitioner Family
DX: I10 Essential (primary) hypertension (principal); E11.9 Type 2 diabetes mellitus without complications; R97.20 Elevated prostate specific antigen [PSA]

== ENCOUNTER → 2024-11-04 | Outpatient (CLI) | payer MEDICARE, MEDICAID ==
[2024-11-07 12:23] LABS: PSA FREE 0.9 ng/mL; PSA TOTAL 5.8 ng/mL (< OR = 4.0)
== END ==
LOC: M PLALAB 07:31
PROVIDERS: ATTEND Physician Assistant Medical
DX: R97.20 Elevated prostate specific antigen [PSA] (principal)

== ENCOUNTER → 2024-11-04 | Outpatient (CLI) | payer MEDICARE, MEDICAID ==
[2024-11-04 11:13] LABS: CHOLESTEROL RISK RATIO 3.79 (<5); HDL CHOLESTEROL 43.5 MG/DL (>40); LDL CHOLESTEROL 78.1 MG/DL (<100); NON-HDL-C 121.5 MG/DL
== END ==
LOC: M PLALAB 07:15
PROVIDERS: ATTEND Internal Medicine Cardiovascular Disease
DX: I25.110 Atherosclerotic heart disease of native coronary artery with unstable angina pectoris (principal); E78.00 Pure hypercholesterolemia, unspecified

== ENCOUNTER → 2024-11-28 | Outpatient (CLI) | payer MEDICARE ==
[~2024-11-28] MED LIST changes: +LIDO1ADH93 TOP; -LIDO5DIS41 TOP
== END ==
LOC: M CARPUL 08:48
PROVIDERS: ATTEND Internal Medicine Cardiovascular Disease
DX: I25.10 Atherosclerotic heart disease of native coronary artery without angina pectoris (principal); I48.0 Paroxysmal atrial fibrillation; I35.1 Nonrheumatic aortic (valve) insufficiency; I36.1 Nonrheumatic tricuspid (valve) insufficiency; I35.8 Other nonrheumatic aortic valve disorders

== ENCOUNTER → 2025-02-13 | Outpatient (CLI) | payer MEDICARE, MEDICAID ==
[~2025-02-13] MED LIST changes: +HYDR12.510 PO; -HYDR12CA PO
[2025-02-13 13:45] LABS: ALT/SGPT 37.0 U/L (7.0-40); AST/SGOT 24.0 U/L (<34); CHOLESTEROL LEVEL 80.0 MG/DL (<200); CHOLESTEROL RISK RATIO 1.87 (<5); CPK CREATINE PHOSPHOKINASE 104.0 U/L (46-171); LDL CHOLESTEROL 13.3 MG/DL (<100); NON-HDL-C 37.3 MG/DL; TRIGLYCERIDES LEVEL 120.0 MG/DL (<150)
== END ==
LOC: M PLALAB 11:12
PROVIDERS: ATTEND Internal Medicine Cardiovascular Disease
DX: R07.89 Other chest pain (principal); I25.110 Atherosclerotic heart disease of native coronary artery with unstable angina pectoris

== ENCOUNTER → 2025-04-18 | Outpatient (CLI) | payer MEDICARE, MEDICAID ==
[2025-04-18 17:07] LABS: ESTIMATED AVERAGE GLUCOSE 246.0 MG/DL (60-110)
== END ==
LOC: M PLALAB 10:19
PROVIDERS: ATTEND Nurse Practitioner Family
DX: E11.9 Type 2 diabetes mellitus without complications (principal)

== ENCOUNTER → 2025-05-10 | Outpatient (CLI) | payer MEDICARE, MEDICAID ==
[~2025-05-10] MED LIST changes: +ONDA-282 PO
[2025-05-12 10:27] LABS: PSA % FREE 18.0 % (calc) (>25); PSA FREE 0.7 ng/mL; PSA TOTAL 3.8 ng/mL (< OR = 4.0)
== END ==
LOC: M PLALAB 08:42
PROVIDERS: ATTEND Physician Assistant Medical
DX: R97.20 Elevated prostate specific antigen [PSA] (principal)

== ENCOUNTER 2025-05-17 15:20 | Emergency (ER) | payer MEDICARE, MEDICAID ==
[~2025-05-17] VITALS: Ht 177.8 cm; Wt 85.6 kg
[~2025-05-17 15:20] MED LIST changes: -ONDA-282 PO
[2025-05-17 16:08] LABS: BASO # 0.0 10^3/uL (0.0-0.2); BASO % 0.3 % (0.0-1.0); EOS # 0.2 10^3/uL (0.0-0.5); EOS % 2.4 % (0.0-3.0); LYMPH # 1.2 10^3/uL (1.5-5.0); LYMPH % 12.6 % (24.0-44.0); MONO # 0.4 10^3/uL (0.0-0.8); MONO % 3.9 % (2.0-8.0); NEUTROPHILS # 8.0 10^3/uL (1.5-8.5); NEUTROPHILS % 80.7 % (36.0-66.0); PLATELET COUNT, AUTOMATED 219 10^3/uL (150-450)
[2025-05-17 16:32] LABS: INR 0.94
[2025-05-17 16:38] LABS: AMPHETAMINES LEVEL URINE NEGATIVE (NEGATIVE); BARBITURATES URINE NEGATIVE (NEGATIVE); BENZODIAZEPINES URINE NEGATIVE (NEGATIVE); CANNABINOIDS URINE NEGATIVE (NEGATIVE); COCAINE METABOLITE URINE NEGATIVE (NEGATIVE); ETHYL ALCOHOL (ETHANOL) < 0.003 % (0.000-0.010); METHADONE URINE NEGATIVE (NEGATIVE); OPIATES URINE NEGATIVE (NEGATIVE); PHENCYCLIDINE URINE NEGATIVE (NEGATIVE)
[2025-05-17 16:40] LABS: ALT/SGPT 32 U/L (7.0-40); AST/SGOT 24 U/L (<34); CALCIUM LEVEL 8.7 MG/DL (8.3-10.6); CARBON DIOXIDE LEVEL 26 MMOL/L (20-31); CHLORIDE LEVEL 103 MMOL/L (98-107); CREATININE FOR GFR 0.91 MG/DL (0.70-1.30); GLOMERULAR FILTRATION RATE 85.7 (>42); POTASSIUM SERUM 4.4 MMOL/L (3.5-5.1); SODIUM LEVEL 139 MMOL/L (136-145)
[2025-05-17 17:15] VITALS: BP 159/85; O2SAT 95
[2025-05-17] MEDS ORDERED: ONDA-282 PO (17:19)
[2025-05-17 17:25] VITALS: TEMP 96.8
== END 2025-05-17 17:40 | disposition home or self-care (01) ==
LOC: M ED 15:20
DX: S00.01XA Abrasion of scalp, initial encounter (principal); S00.03XA Contusion of scalp, initial encounter; W17.89XA Other fall from one level to another, initial encounter; Y92.9 Unspecified place or not applicable; Y93.9 Activity, unspecified; Y99.9 Unspecified external cause status; M48.02 Spinal stenosis, cervical region; G31.1 Senile degeneration of brain, not elsewhere classified; I10 Essential (primary) hypertension; E78.5 Hyperlipidemia, unspecified; K21.9 Gastro-esophageal reflux disease without esophagitis; K57.92 Diverticulitis of intestine, part unspecified, without perforation or abscess without bleeding; Z95.1 Presence of aortocoronary bypass graft; Z79.82 Long term (current) use of aspirin; Z79.899 Other long term (current) drug therapy; Z88.2 Allergy status to sulfonamides

== ENCOUNTER → 2025-06-27 | Outpatient (CLI) | payer MEDICARE, MEDICAID ==
[~2025-06-27] MED LIST changes: +ONDA-282 PO
[2025-06-27 14:04] LABS: ESTIMATED AVERAGE GLUCOSE 206.0 MG/DL (60-110)
== END ==
LOC: M PLALAB 09:27
PROVIDERS: ATTEND Nurse Practitioner Family
DX: E11.9 Type 2 diabetes mellitus without complications (principal)